=== PATIENT | female | born 1930 | race African-American/Black ===

== ENCOUNTER 2017-08-25 13:10 | Emergency (ER) | payer OTHER ==
[~2017-08-25] VITALS: Ht 165.1 cm; Wt 83.0 kg
[2017-08-25] MEDS ORDERED: TRAMADOL 50MG TABLET PO ONE (13:45)
[2017-08-25] MEDS ORDERED: ACETAMINOPHEN 325MG TABLET PO ONE (14:15)
[2017-08-25 17:27] LABS: CHLORIDE 106 mEq/L (98-107)
[2017-08-25 18:16] LABS: BASOPHILS % 1.1 % (0.0-2.0); EOSINOPHILS % 0.9 % (0.0-5.0); HEMATOCRIT. 34.9 % (36.0-48.0); HEMOGLOBIN. 11.6 g/dL (12.0-16.0); LYMPHOCYTES % 21.1 % (20.0-50.0); MEAN CORPUSCULAR HEMOGLOBIN 30.3 pg (28.0-32.0); MEAN PLATELET VOLUME 7.6 fl (7.4-10.4); NEUTROPHILS % 64.9 % (40.0-76.0); PLATELET 198 x1000/uL (130-400); RED BLOOD CELL COUNT 3.83 mill/uL (4.2-5.4); RED CELL DISTRIBUTION WIDTH 13.8 % (11.6-14.6)
[2017-08-25 19:00] VITALS: BP 158/65
== END 2017-08-25 19:04 | disposition home or self-care (01) ==
LOC: ER 13:38
DX: S27.329A Contusion of lung, unspecified, initial encounter (principal); I10 Essential (primary) hypertension; V49.9XXA Car occupant (driver) (passenger) injured in unspecified traffic accident, initial encounter; Y93.89 Activity, other specified; Y99.8 Other external cause status; Y92.410 Unspecified street and highway as the place of occurrence of the external cause
CPT/HCPCS: 36415; 71045; 71250; 80048; 84484; 85025; 93005; 99285

== ENCOUNTER 2020-04-10 11:10 | Inpatient (IN) | payer OTHER ==
[~2020-04-10] VITALS: Ht 160 cm; Wt 92.1 kg
[2020-04-10] MEDS ORDERED: HEPARIN 25,000 UNITS PREMIX 250 ML IV ONE (12:15)
[2020-04-10] MEDS ORDERED: ADENOSINE 3 MG/ML 2ML VIAL IV ONE (12:15)
[2020-04-10] MEDS ORDERED: DILTIAZEM HCL 125 MG in DEXT 5% WATER 100 ML IV ONE (12:15)
[2020-04-10 12:48] LABS: HEMATOCRIT. 38.5 % (36.0-48.0); HEMOGLOBIN. 12.5 g/dL (12.0-16.0); MEAN CORPUSCULAR HEMOGLOBIN 28.6 pg (28.0-32.0); MEAN CORPUSCULAR VOLUME 88.4 fL (81.0-99.0); MEAN PLATELET VOLUME 8.2 fl (7.4-10.4); PLATELET 180 x1000/uL (130-400); RED BLOOD CELL COUNT 4.36 mill/uL (4.2-5.4); RED CELL DISTRIBUTION WIDTH 16.4 % (11.6-14.6)
[2020-04-10 12:56] LABS: CHLORIDE 105 mEq/L (98-107)
[2020-04-10 13:20] LABS: PLATELET ESTIMATE NORMAL
[2020-04-10] MEDS ORDERED: HEPARIN 5000 UNITS/ML VIAL IV SCH (14:30)
[2020-04-10] MEDS ORDERED: CEFTRIAXONE 1 G PREMIX 50 ML IV ONE (14:30)
[2020-04-10] MEDS ORDERED: HEPARIN 5000 UNITS/ML VIAL IV PRN (15:00)
[2020-04-10] MEDS: HEPARIN 25,000 UNITS PREMIX 250 ML IV PRN (15:49)
[2020-04-10] MEDS ORDERED: MORPHINE SULFATE 2 MG/ML CPJ (NOT FOR IM USE) IV PRN (16:00)
[2020-04-10] MEDS ORDERED: ONDANSETRON HCL 4MG/2ML INJ IV PRN (16:00)
[2020-04-10] MEDS ORDERED: HYDROCODONE/ACETAMINOPHEN 5/325MG TABLET PO PRN (16:00)
[2020-04-10] MEDS ORDERED: IPRATROPIUM/ALBUTEROL 0.5-3(2.5)MG/3ML NEB NEB PRN (16:00)
[2020-04-10] MEDS ORDERED: CLONIDINE 0.1MG TABLET PO PRN ×2 (16:00→16:45)
[2020-04-10] MEDS ORDERED: DOCUSATE SODIUM 100MG CAPSULE PO PRN (16:00)
[2020-04-10] MEDS: THIAMINE HCL 100MG TABLET PO SCH (16:34)
[2020-04-10] MEDS: FUROSEMIDE 40MG/4ML VIAL IVP SCH (17:39)
[2020-04-11 04:31] LABS: HEMATOCRIT. 29.6 % (36.0-48.0); HEMOGLOBIN. 9.2 g/dL (12.0-16.0); MEAN CORPUSCULAR HEMOGLOBIN 28.7 pg (28.0-32.0); MEAN CORPUSCULAR VOLUME 92.5 fL (81.0-99.0); MEAN PLATELET VOLUME 8.3 fl (7.4-10.4); PLATELET 157 x1000/uL (130-400); RED CELL DISTRIBUTION WIDTH 16.7 % (11.6-14.6)
[2020-04-11 04:43] LABS: PHOSPHORUS 2.8 mg/dL (2.5-4.9)
[2020-04-11 08:08] LABS: *AMPHETAMINES SCREEN URINE NEGATIVE (NEGATIVE); *BARBITURATES SCREEN URINE NEGATIVE (NEGATIVE); *BENZODIAZEPINES SCREEN URINE NEGATIVE (NEGATIVE); *COCAINE SCREEN URINE NEGATIVE (NEGATIVE); METHADONE URINE SCREEN NEGATIVE (NEGATIVE); OPIATES URINE SCREEN NEGATIVE (NEGATIVE)
[2020-04-11 08:10] LABS: CANNABINOID URINE SCREEN NEGATIVE (NEGATIVE); PHENCYCLIDINE URINE SCREEN NEGATIVE (NEGATIVE)
[2020-04-11] MEDS: FUROSEMIDE 40MG/4ML VIAL IVP SCH (08:44)
[2020-04-11 11:45] LABS: PLATELET ESTIMATE NORMAL
[2020-04-11] MEDS ORDERED: IOHEXOL-350 100 ML BOTTLE ONE (11:46)
[2020-04-11] MEDS: CEFTRIAXONE 1,000 MG in DEXTROSE 5% WATER 50 ML IV SCH (17:00)
[2020-04-11] MEDS: THIAMINE HCL 100MG TABLET PO SCH (17:01)
[2020-04-12 09:00] LABS: BASOPHILS % 0.3 % (0.0-2.0); EOSINOPHILS % 0.9 % (0.0-5.0); HEMATOCRIT. 33.6 % (36.0-48.0); HEMOGLOBIN. 10.9 g/dL (12.0-16.0); LYMPHOCYTES % 9.3 % (20.0-50.0); MEAN CORPUSCULAR HEMOGLOBIN 28.7 pg (28.0-32.0); MEAN CORPUSCULAR VOLUME 88.3 fL (81.0-99.0); MEAN PLATELET VOLUME 8.4 fl (7.4-10.4); MONOCYTES % 12.3 % (2.0-8.0); NEUTROPHILS % 77.2 % (40.0-76.0); PLATELET 189 x1000/uL (130-400); RED CELL DISTRIBUTION WIDTH 16.3 % (11.6-14.6)
[2020-04-12 09:10] LABS: CHLORIDE 107 mEq/L (98-107)
[2020-04-12 09:16] LABS: PHOSPHORUS 2.9 mg/dL (2.5-4.9)
[2020-04-12 12:30] VITALS: BP 140/55
[2020-04-12 12:45] VITALS: BP 100/61
[2020-04-12] MEDS: DILTIAZEM HCL 30MG TABLET PO SCH ×2 (14:00→22:58)
[2020-04-12 15:04] LABS: T4 FREE 1.11 ng/dL (0.76-1.46)
[2020-04-12] MEDS: THIAMINE HCL 100MG TABLET PO SCH (15:43)
[2020-04-12 18:00] VITALS: BP 125/63
[2020-04-12] MEDS: HEPARIN 5000 UNITS/ML VIAL IV PRN (18:51)
[2020-04-12 20:00] VITALS: BP_SYST 142; BP_DIAS 52; BP_DIAS 95
[2020-04-12 22:00] VITALS: BP 123/68
[2020-04-13] VITALS (12 sets, daily range): BP systolic 113–139; BP diastolic 42–73
[2020-04-13] MEDS: CEFTRIAXONE 1,000 MG in DEXTROSE 5% WATER 50 ML IV SCH ×2 (01:46→17:29)
[2020-04-13] MEDS ORDERED: DULO30CA52 PO (05:29)
[2020-04-13] MEDS ORDERED: ENOX40DI8 SQ (05:29)
[2020-04-13] MEDS ORDERED: CEFU500T41 PO (05:29)
[2020-04-13] MEDS ORDERED: DOXY100T28 MT (05:29)
[2020-04-13] MEDS ORDERED: PANT40TA4 PO (05:29)
[2020-04-13] MEDS ORDERED: CHOL40002 MT (05:29)
[2020-04-13] MEDS ORDERED: FURO-151 MT (05:29)
[2020-04-13] MEDS ORDERED: LOPHC2 MT (05:29)
[2020-04-13] MEDS ORDERED: DABI150C PO (05:29)
[2020-04-13] MEDS ORDERED: LOSA25TA26 PO (05:29)
[2020-04-13] MEDS ORDERED: LIP40 MT (05:29)
[2020-04-13] MEDS: DILTIAZEM HCL 30MG TABLET PO SCH ×3 (06:39→21:05)
[2020-04-13 07:10] LABS: HEMATOCRIT. 32.5 % (36.0-48.0); HEMOGLOBIN. 10.6 g/dL (12.0-16.0); MEAN CORPUSCULAR HEMOGLOBIN 28.7 pg (28.0-32.0); MEAN CORPUSCULAR VOLUME 88.4 fL (81.0-99.0); MEAN PLATELET VOLUME 8.6 fl (7.4-10.4); PLATELET 183 x1000/uL (130-400); RED BLOOD CELL COUNT 3.67 mill/uL (4.2-5.4); RED CELL DISTRIBUTION WIDTH 15.8 % (11.6-14.6)
[2020-04-13 07:27] LABS: CHLORIDE 106 mEq/L (98-107)
[2020-04-13] MEDS ORDERED: *PATIENT'S OWN MEDICATION STORAGE XX SCH (07:30)
[2020-04-13] MEDS: THIAMINE HCL 100MG TABLET PO SCH (08:44)
[2020-04-13] MEDS: HEPARIN 5000 UNITS/ML VIAL IV PRN (10:21)
[2020-04-13] MEDS: HEPARIN 25,000 UNITS PREMIX 250 ML IV PRN (11:01)
[2020-04-13 11:25] LABS: CLARITY URINE CLOUDY (CLEAR); COLOR URINE YELLOW (YELLOW); KETONES URINE NEGATIVE (NEGATIVE); LEUKOCYTE ESTERASE URINE 3+ (NEGATIVE); NITRITE URINE NEGATIVE (NEGATIVE); OCCULT BLOOD URINE 3+ (NEGATIVE); PROTEIN URINE NEGATIVE (NEGATIVE); SPECIFIC GRAVITY URINE 1.016 (1.005-1.030); UROBILINOGEN URINE 0.2 E.U./dL (0.2-1.0)
[2020-04-13] MEDS ORDERED: IOHEXOL-350 100 ML BOTTLE ONE (11:54)
[2020-04-13 18:10] LABS: PLATELET ESTIMATE NORMAL
[2020-04-14] VITALS (9 sets, daily range): BP systolic 104–133; BP diastolic 59–98
[2020-04-14] MEDS: DILTIAZEM HCL 30MG TABLET PO SCH ×2 (05:12→14:07)
[2020-04-14 08:50] LABS: BG BASE EXCESS 4.4 mmol/L (-2.0-2.0); BG CARBOXYHEMOGLOBIN 0.3 % (0.5-1.5); BG DEOXYHEMOGLOBIN 2.2 % (0.0-5.0); BG FRACTION INSPIRED OXYGEN 3; BG METHEMOGLOBIN 0.3 % (0.0-1.5); BG OXYGEN SATURATION 97.8 % (92.0-98.5); BG OXYHEMOGLOBIN 97.2 % (94.0-97.0); BG PCO2 43.6 mmHg (35.0-45.0); BG PH 7.441 (7.350-7.450); BG PO2 98.5 mmHg (75.0-100.0); BG SAMPLE SITE LEFT BRACHIAL; BG VENT MODE NASAL CANNULA
[2020-04-14] MEDS ORDERED: FUROSEMIDE 40MG/4ML VIAL IVP SCH (09:00)
[2020-04-14] MEDS: THIAMINE HCL 100MG TABLET PO SCH (09:15)
[2020-04-14] MEDS ORDERED: ENOXAPARIN 100MG/ML SYR SUBCUT SCH (11:30)
[2020-04-14] MEDS: CEFTRIAXONE 1,000 MG in DEXTROSE 5% WATER 50 ML IV SCH (17:00)
== END 2020-04-14 18:45 | disposition home health service (06) | DRG 871 ==
LOC: ER 11:10 → MICUSO 14:17 → 8WST 04-12 11:03 → 3WST 04-12 17:16
PROVIDERS: ADMIT Internal Medicine Nephrology; ATTEND Internal Medicine Nephrology
DX: A41.51 Sepsis due to Escherichia coli [E. coli] (principal); J96.01 Acute respiratory failure with hypoxia; I50.41 Acute combined systolic (congestive) and diastolic (congestive) heart failure; I47.1 Supraventricular tachycardia; E44.1 Mild protein-calorie malnutrition; I48.19 Other persistent atrial fibrillation; E87.2 Acidosis; J84.9 Interstitial pulmonary disease, unspecified; N39.0 Urinary tract infection, site not specified; E66.9 Obesity, unspecified; I11.0 Hypertensive heart disease with heart failure; D63.8 Anemia in other chronic diseases classified elsewhere; B96.89 Other specified bacterial agents as the cause of diseases classified elsewhere; E78.00 Pure hypercholesterolemia, unspecified; E78.5 Hyperlipidemia, unspecified; Z20.828 Contact with and (suspected) exposure to other viral communicable diseases; I25.10 Atherosclerotic heart disease of native coronary artery without angina pectoris; I49.1 Atrial premature depolarization; M19.90 Unspecified osteoarthritis, unspecified site; Z86.711 Personal history of pulmonary embolism; Z71.3 Dietary counseling and surveillance; Z68.36 Body mass index [BMI] 36.0-36.9, adult
CPT/HCPCS: 36415; 36600; 71045; 71275; 80048; 80053; 80305; 81003; 82375; 82805; 83036; 83605; 83735; 83880; 84100; 84439; 84443; 84481; 84484; 85025; 85379; 87077; 87186; 87635; 93005; 93306; 93970; 96365; 97162; 97530; 99291; J0153; J0696; J1644; J1650; J1940; J2270; J3490; J7060; Q9967

== ENCOUNTER 2022-02-28 18:12 | Emergency (ER) | payer OTHER ==
[~2022-02-28] VITALS: Ht 152.4 cm; Wt 64.0 kg
[~2022-02-28 18:12] MED LIST: CEFU500T41 PO; CHOL40002 MT; DULO30CA52 PO; FURO-151 MT; LIP40 MT; LOPHC2 MT; LOSA25TA26 PO; PANT40TA51 PO
[2022-02-28] MEDS ORDERED: MORPHINE SULFATE 4 MG/ML CPJ (NOT FOR IM USE) IV ONE (19:00)
[2022-02-28 19:20] LABS: HEMATOCRIT. 35.2 % (36.0-48.0); MEAN CORPUSCULAR HEMOGLOBIN 29.2 pg (28.0-32.0); MEAN PLATELET VOLUME 8.1 fl (7.4-10.4); PLATELET 175 x1000/uL (130-400); RED BLOOD CELL COUNT 3.79 mill/uL (4.2-5.4); RED CELL DISTRIBUTION WIDTH 16.3 % (11.6-14.6)
[2022-02-28 19:30] LABS: CHLORIDE 100 mEq/L (98-107)
[2022-02-28] MEDS: SODIUM CHLORIDE 0.9% 1,000 ML IV NR ×2 (19:53→20:04)
[2022-02-28 20:11] LABS: PLATELET ESTIMATE NORMAL
[2022-02-28 22:27] VITALS: BP 126/58
== END 2022-02-28 23:17 | disposition short-term general hospital (02) ==
LOC: ER 18:12
DX: I12.9 Hypertensive chronic kidney disease with stage 1 through stage 4 chronic kidney disease, or unspecified chronic kidney disease (principal); N18.9 Chronic kidney disease, unspecified; E78.00 Pure hypercholesterolemia, unspecified
CPT/HCPCS: 36415; 71045; 80053; 83880; 84484; 85025; 93005; 96361; 96374; 99285; J2270